=== PATIENT | male | born 1980 | race Hispanic/Latino ===

== ENCOUNTER 2020-12-02 08:00 | Emergency (ER) | payer OTHER ==
[~2020-12-02] VITALS: Ht 198.1 cm; Wt 120.2 kg
[2020-12-02] MEDS ORDERED: DEXAMETHASONE SOD PHOS 10 MG/1 ML VIAL IM ONE (08:45)
[2020-12-02] MEDS ORDERED: HYDROCODONE/APAP 10MG-325MG TAB PO ONE (08:45)
== END 2020-12-02 09:35 | disposition home or self-care (01) ==
LOC: ER 08:20
DX: M79.671 Pain in right foot (principal); M10.9 Gout, unspecified; M77.31 Calcaneal spur, right foot; F41.9 Anxiety disorder, unspecified; Z86.718 Personal history of other venous thrombosis and embolism
CPT/HCPCS: 73630; 99283; J1100